=== PATIENT | male | born 1945 | race Two or more races ===

== ENCOUNTER 2021-05-10 13:15 | Emergency (ER) | payer OTHER ==
[~2021-05-10] VITALS: Ht 172.7 cm; Wt 79.4 kg
[2021-05-10] MEDS ORDERED: JENTADUETO 2.51 EAC2 (13:22)
[2021-05-10] MEDS ORDERED: NORVASC2.5 M1 (13:22)
[2021-05-10] MEDS ORDERED: DIOVAN40 MG (13:22)
[2021-05-10] MEDS ORDERED: PAXLOVID CO-PA1 EACH PO (17:51)
== END 2021-05-10 18:15 ==
LOC: ER 13:15
DX: U07.1 COVID-19 (principal); B34.9 Viral infection, unspecified; Z88.0 Allergy status to penicillin

== ENCOUNTER 2022-01-19 14:48 | Emergency (ER) | payer OTHER ==
[~2022-01-19] VITALS: Ht 172.7 cm; Wt 77.1 kg
[~2022-01-19 14:48] MED LIST: DIOVAN40 MG; JENTADUETO 2.51 EAC2; NORVASC2.5 M1; PAXLOVID CO-PA1 EACH PO
[2022-01-19] MEDS ORDERED: SYNTHROID75 MCG PO (15:10)
[2022-01-19] MEDS ORDERED: ZITHROMAX500 MG PO (19:30)
== END 2022-01-19 19:56 | disposition home or self-care (01) ==
LOC: ER 14:48
DX: B34.9 Viral infection, unspecified (principal); E11.9 Type 2 diabetes mellitus without complications; I10 Essential (primary) hypertension; Z20.822 Contact with and (suspected) exposure to COVID-19; Z88.0 Allergy status to penicillin